=== PATIENT | female | born 1990 | race African-American/Black ===

== ENCOUNTER 2016-11-17 08:22 | Emergency (ER) | payer MEDICAID ==
[~2016-11-17] VITALS: Ht 157.5 cm; Wt 91.0 kg
[2016-11-17 08:35] VITALS: BP 146/66
== END 2016-11-17 10:02 | disposition home or self-care (01) ==
LOC: ER 09:28
DX: H60.92 Unspecified otitis externa, left ear (principal); J30.2 Other seasonal allergic rhinitis; R03.0 Elevated blood-pressure reading, without diagnosis of hypertension; J40 Bronchitis, not specified as acute or chronic; F41.9 Anxiety disorder, unspecified
CPT/HCPCS: 99283

== ENCOUNTER 2017-03-15 08:22 | Emergency (ER) | payer MEDICAID ==
[~2017-03-15] VITALS: Ht 157.5 cm; Wt 82.0 kg
[2017-03-15 10:01] LABS: GLUCOSE URINE NEGATIVE (NEGATIVE); KETONES URINE NEGATIVE (NEGATIVE); LEUKOCYTE ESTERASE URINE 3+ (NEGATIVE); NITRITE URINE NEGATIVE (NEGATIVE); OCCULT BLOOD URINE 1+ (NEGATIVE); PH URINE 5.5 (4.5-8.0); PROTEIN URINE NEGATIVE (NEGATIVE); SPECIFIC GRAVITY URINE 1.025 (1.005-1.030)
[2017-03-15 10:03] LABS: CLARITY URINE SL HAZY (CLEAR); COLOR URINE YELLOW (YELLOW)
[2017-03-15] MEDS ORDERED: METRONIDAZOLE 500MG TABLET PO ONE (12:15)
[2017-03-15 12:30] VITALS: BP 122/60
[2017-03-17 17:12] LABS: CHLAMYDIA TRACHOMATIS NAA Negative (Negative); NEISSERIA GONORRHOEAE NAA Negative (Negative)
== END 2017-03-15 13:32 | disposition home or self-care (01) ==
LOC: ER 08:43
DX: N39.0 Urinary tract infection, site not specified (principal); N76.0 Acute vaginitis; F41.9 Anxiety disorder, unspecified
CPT/HCPCS: 81001; 81025; 87210; 87491; 87591; 99284; Z7610

== ENCOUNTER 2017-04-26 11:25 | Emergency (ER) | payer MEDICAID ==
[~2017-04-26] VITALS: Ht 157.5 cm; Wt 91.0 kg
[2017-04-26 11:27] VITALS: BP 129/81
== END 2017-04-26 18:45 | disposition left against medical advice (07) ==
LOC: ER 14:26
DX: T74.21XA Adult sexual abuse, confirmed, initial encounter (principal); N89.8 Other specified noninflammatory disorders of vagina; R10.2 Pelvic and perineal pain; Z72.0 Tobacco use; F41.9 Anxiety disorder, unspecified; J40 Bronchitis, not specified as acute or chronic
CPT/HCPCS: 99283

== ENCOUNTER 2018-09-06 15:28 | Emergency (ER) | payer MEDICAID ==
[~2018-09-06] VITALS: Ht 157.5 cm; Wt 91.0 kg
[2018-09-06] MEDS ORDERED: KETOROLAC 60MG/2ML VIAL IM ONE (20:15)
[2018-09-06 20:20] VITALS: BP 119/73
== END 2018-09-06 20:20 | disposition home or self-care (01) ==
LOC: ER 15:28
DX: S30.0XXA Contusion of lower back and pelvis, initial encounter (principal); F41.9 Anxiety disorder, unspecified; F17.290 Nicotine dependence, other tobacco product, uncomplicated; W01.0XXA Fall on same level from slipping, tripping and stumbling without subsequent striking against object, initial encounter; Y93.89 Activity, other specified; Y92.89 Other specified places as the place of occurrence of the external cause; Y99.8 Other external cause status
CPT/HCPCS: 81025; 96372; 99283; 99406; J1885; Z7610